=== PATIENT | male | born 1965 | race Two or more races ===

== ENCOUNTER → 2021-01-17 13:58 | Outpatient (CLI) | payer OTHER, SELFPAY ==
[2021-01-17 14:16] LABS: Basophils # 0.1 K/mm3 (0-0.2); Basophils % 0.6 % (0.1-2.0); Eosinophils # 0.8 K/mm3 (0.0-0.4); Hematocrit 50.5 % (42.0-52.0); Hemoglobin 15.8 g/dL (14.1-18.0); Lymphocytes % 26.4 % (10-50); Mean Corpuscular HGB Conc 31.3 g/dL (31.8-35.4); Mean Corpuscular Hemoglobin 30.5 pg (27.0-31.2); Mean Corpuscular Volume 97.6 fl (80-94); Mean Platelet Volume 7.7 fl (7.4-10.4); Monocytes # 0.6 K/mm3 (0.1-1.0); Monocytes % 7.8 % (1.7-9.3); Neutrophils % 54.2 % (37.0-80.0); Platelet Count 287 K/mm3 (142-424); Red Blood Count 5.18 M/mm3 (4.60-6.20); Red Cell Distribution Width 13.5 % (11.5-17.5); White Blood Count 7.4 K/mm3 (4.8-10.8)
[2021-01-17 14:32] LABS: 25-OH Vitamin D, Total 26.2 ng/mL (30-100)
[2021-01-17 14:44] LABS: Alanine Aminotransferase 41 U/L (12-78); Albumin Level 4.5 g/dl (3.5-5.0); Anion Gap 14.2 mEq/L (5-15); Aspartate Amino Transferase 35 U/L (17-59); Bilirubin,Total 0.3 mg/dl (0.2-1.3); Blood Urea Nitrogen 11 mg/dl (9-20); Calcium 8.7 mg/dl (8.4-10.2); Carbon Dioxide 21 mmol/L (22.0-30.0); Chloride 108 mmol/L (98-107); Estimated Glomerular Filt Rate 118 ml/min (>60); GFR (African American) 143 ML/MIN (>60); Globulin 3.2 g/dL (1.3-3.2); Glucose 85 mg/dl (74-100); Potassium 4.2 mmoL/L (3.5-5.1); Sodium 139 mmol/L (136-145); Total Protein,Serum 7.7 g/dl (6.3-8.2)
[2021-01-17 14:45] LABS: Albumin/Globulin Ratio 1.4 (1.1-1.8); Alkaline Phosphatase 82 U/L (38-126); Chol/HDL Ratio 4.1 (1-3.5); Cholesterol 160 mg/dl (140-200); HDL Cholesterol 39 mg/dl (40-60); Triglycerides 140 mg/dl (30-150); VLDL Cholesterol 28 mg/dL (0-40)
[2021-01-17 14:56] LABS: Direct LDL Cholesterol 90.76 mg/dL (100-129)
[2021-01-17 15:02] LABS: T4 (Thyroxine) 7.8 ug/dl (5.53-11.0)
[2021-01-17 15:15] LABS: Prostate Specific Ag Screen 1.5 ng/ml (0.0-4.0); Thyroid Stimulating Hormone 4.07 uIU/mL (0.465-4.68)
== END ==
PROVIDERS: Visit Provider Nurse Practitioner Family
DX: Z00.00 Encounter for general adult medical examination without abnormal findings (principal); I10 Essential (primary) hypertension; M10.9 Gout, unspecified; E55.9 Vitamin D deficiency, unspecified; Z12.5 Encounter for screening for malignant neoplasm of prostate
CPT/HCPCS: 80053; 80061; 82306; 83036; 84436; 84443; 84550; 85025; G0103

== ENCOUNTER 2021-05-28 23:14 | Emergency (ER) | payer OTHER, SELFPAY ==
[2021-05-28 23:16] VITALS: BP 152/98; PULSE 110; RESP 21; TEMP 37.8; O2SAT 98; BMI 34.3
[2021-05-28 23:41] VITALS: BMI 31.8
--- NOTE | 2021-05-28 23:42 | XR_ITS ---
PROCEDURE INFORMATION: Exam: XR Chest Exam date and time: 05/28/2021 11:42 PM Age: 56 years old Clinical indication: Cough and shortness of breath; Additional info: Cough, SOA TECHNIQUE: Imaging protocol: XR of the chest. Views: 2 views. COMPARISON: No relevant prior studies available. FINDINGS: Lungs: Linear bibasilar atelectasis. Otherwise, no airspace consolidation. Pleural spaces: No pleural effusion. No pneumothorax. Heart/Mediastinum: Heart size upper limits of normal. Mildly tortuous thoracic aorta. Bones/joints: Unremarkable. IMPRESSION: Bibasilar atelectasis.
[2021-05-28 23:48] LABS: Coronavirus 19, PCR Not Detected (NotDetected); Influenza A, PCR Not Detected (NotDetected); Influenza B, PCR Not Detected (NotDetected)
[2021-05-28 23:49] LABS: Basophils # 0.1 K/mm3 (0-0.2); Basophils % 0.7 % (0.1-2.0); Eosinophils # 0.5 K/mm3 (0.0-0.4); Eosinophils % 4.7 % (0.1-12.0); Hemoglobin 15.8 g/dL (14.1-18.0); Lymphocytes # 1.4 K/mm3 (0.7-4.5); Lymphocytes % 12.5 % (10-50); Mean Corpuscular HGB Conc 32.2 g/dL (31.8-35.4); Mean Corpuscular Volume 99.2 fl (80-94); Mean Platelet Volume 8.2 fl (7.4-10.4); Monocytes # 0.5 K/mm3 (0.1-1.0); Monocytes % 4.5 % (1.7-9.3); Neutrophils # 8.9 K/mm3 (1.8-7.8); Neutrophils % 77.7 % (37.0-80.0); Platelet Count 288 K/mm3 (142-424); Red Blood Count 4.94 M/mm3 (4.60-6.20); Red Cell Distribution Width 13.9 % (11.5-17.5); White Blood Count 11.4 K/mm3 (4.8-10.8)
[2021-05-29 00:01] LABS: C-Reactive Protein 16.1 mg/L (0-4)
[2021-05-29 00:10] LABS: Lactic Acid 2.4 mmol/L (0.7-2.1)
[2021-05-29 00:15] LABS: Alanine Aminotransferase 44 U/L (12-78); Albumin Level 4.2 g/dl (3.5-5.0); Albumin/Globulin Ratio 1.3 (1.1-1.8); Alkaline Phosphatase 55 U/L (38-126); Anion Gap 13.8 mEq/L (5-15); Aspartate Amino Transferase 35 U/L (17-59); Bilirubin,Total 0.3 mg/dl (0.2-1.3); Blood Urea Nitrogen 11 mg/dl (9-20); Calcium 8.9 mg/dl (8.4-10.2); Carbon Dioxide 23 mmol/L (22.0-30.0); Chloride 108 mmol/L (98-107); Creatinine Clearance Estimated 122 mL/min (50-200); Estimated Glomerular Filt Rate 101 ml/min (>60); GFR (African American) 122 ML/MIN (>60); Globulin 3.3 g/dL (1.3-3.2); Glucose 206 mg/dl (74-100); Magnesium 1.8 mg/dl (1.6-2.3); Potassium 3.8 mmoL/L (3.5-5.1); Procalcitonin 0.068 ng/mL (0.0-2.0); Sodium 141 mmol/L (136-145); Total Protein,Serum 7.5 g/dl (6.3-8.2); Troponin I < 0.01 ng/ml (0.00-0.034)
[2021-05-29 00:20] VITALS: BP 152/98; PULSE 114; O2SAT 97
[2021-05-29 00:28] LABS: Erythrocyte Sedimentation Rate 7 mm/hr (0-20)
--- NOTE | 2021-05-29 00:41 | PC.NURSE ---
pt up to restroom
--- NOTE | 2021-05-29 00:46 | HMH.EDSOB ---
ED Disposition Clinical Impression: Elevated glucose level, HTN (hypertension) with goal to be determined URI (upper respiratory infection) Qualifiers: URI type: unspecified URI Qualified Code(s): J06.9 - Acute upper respiratory infection, unspecified Disposition: Home, Self-Care Condition on Discharge: Good Instructions: DI for Viral Upper Respiratory Infection -- Adult Additional Instructions: call pcp in am Referrals: Marcell Bonner APRN [Primary Care Provider] - - Critical Care Critical Care Time: No Attestation: On 05/28/21, the high probability of a clinically significant, sudden or life threatening deterioration of the following system(s) required my full and direct attention, intervention and personal management. The time I documented below is in addition to time spent performing reported procedures but includes the following listed in this critical care notation. Medical Decision Making - Medical Records Medical records reviewed: Yes: I reviewed the patient's medical records. - Andrzej Inquiry Pt receiving controlled substance: No Vital Signs: 05/28/21 23:16 05/29/21 00:20 Temperature 100.1 F H Temperature Source Oral Pulse Rate 114 H Pulse Rate [Right] 110 H Respiratory Rate 21 Blood Pressure 152/98 H Blood Pressure [Right Arm] 152/98 H Blood Pressure Mean [Right Arm] 116 02 Sat by Pulse Oximetry 98 97 Oxygen Delivery Method Room Air - Lab Data Lab results reviewed: Yes: I reviewed the patient's lab results. Lab Results 05/28/21 23:30: WBC 11.4 H, RBC 4.94, Hgb 15.8, Hct 49.0, MCV 99.2 H, MCH 32.0 H, MCHC 32.2, RDW 13.9, Plt Count 288, MPV 8.2, Neut % (Auto) 77.7, Lymph % (Auto) 12.5, [place] % (Auto) 4.5, Eos % (Auto) 4.7, Baso % (Auto) 0.7, Neut # (Auto) 8.9 H, Lymph # (Auto) 1.4, [place] # (Auto) 0.5, Eos # (Auto) 0.5 H, Baso # (Auto) 0.1, ESR 7 05/28/21 23:30: Sodium 141, Potassium 3.8, Chloride 108 H, Carbon Dioxide 23, Anion Gap 13.8, BUN 11, Creatinine 0.80, Estimated Creat Clear 122, Estimated GFR 101, Est GFR ( Amer) 122, Glucose 206 H, Calcium 8.9, Magnesium 1.8, Total Bilirubin 0.3, AST 35, ALT 44, Alkaline Phosphatase 55, Troponin I < 0.01, C-Reactive Protein 16.1 H, Total Protein 7.5, Albumin 4.2, Globulin 3.3 H, Albumin/Globulin Ratio 1.3, Procalcitonin 0.068 05/28/21 23:30: Lactate 2.4 H 05/28/21 23:30: SARS-CoV-2 (PCR) Not detected, Influenza A Untype (PCR) Not detected, Influenza Type B (PCR) Not detected Result diagrams: 05/28/21 23:30 05/28/21 23:30 Orders (Tests/Meds): ED MEDICATIONS Generic Name Dose Route Start Last Admin Trade Name Freq PRN Reason Stop Dose Admin Sodium Chloride 1,000 mls @ 999 mls/hr 05/28/21 23:45 05/29/21 00:00 Sod Chlor 0.9% 1000ml Bag IV 05/29/21 00:45 999 mls/hr .Q1H1M KAREN Administration Discontinued Medications Generic Name Dose Route Start Last Admin Trade Name Freq PRN Reason Stop Dose Admin Dexamethasone Sodium Phosphate 10 mg 05/28/21 23:45 05/29/21 00:33 Dexamethasone 4mg/Ml 5ml Mdv IV 05/28/21 23:46 10 mg ONCE ONE Administration Ketorolac Tromethamine 30 mg 05/28/21 23:45 05/29/21 00:33 Ketorolac 30mg/Ml Vial IV 05/28/21 23:46 Not Given ONCE ONE ORDERS Category Date Time Status Hemoglobin A1C Stat Lab 05/29/21 00:49 Ordered Troponin I Q3H Lab 05/29/21 02:45 Ordered Troponin I Q3H Lab 05/29/21 05:45 Ordered UA [Urinalysis and Microscopic] Stat Lab 05/28/21 23:47 Ordered - Radiology Data #1 Image(s): Chest Image Reviewed: Yes I have reviewed radiologist's interpretation Preliminary Findings: Normal/NAD Medical Decision Narrative: prob uri but has elevated glu and bp - will ask pt to call pcp for follow up Resp/SOB HPI - General Chief Complaint: Shortness of Breath/Dyspnea Stated Complaint: sore throat,cough,SOA,LIU,runny nose Time Seen by Provider: 05/28/21 23:45 Mode of Arrival: Family Vehicle Source of Information: Patient, Medical Record
[2021-05-29 01:09] VITALS: BP 158/96; PULSE 99; RESP 20; TEMP 37.3; O2SAT 97
== END 2021-05-29 01:11 | disposition home or self-care (01) ==
PROVIDERS: Emergency Provider Emergency Medicine; PCP Nurse Practitioner Family
DX: J06.9 Acute upper respiratory infection, unspecified (principal); I16.0 Hypertensive urgency; Z20.822 Contact with and (suspected) exposure to COVID-19
CPT/HCPCS: 71046; 80053; 83036; 83605; 83735; 84145; 84484; 85025; 85651; 86140; 96365; 96375; 99283; C9803; U0003; U0005

== ENCOUNTER → 2021-05-29 18:44 | Outpatient (CLI) | payer OTHER, SELFPAY ==
[2021-05-29 18:45] LABS: Adenovirus,PCR Not Detected (NotDetected); Bordetella Pertussis Not Detected (NotDetected); Chlamydophila Pneumoniae, PCR Not Detected (NotDetected); Coronavirus 19, PCR Not Detected (NotDetected); Coronavirus 229E Not Detected (NotDetected); Coronavirus NL63 Not Detected (NotDetected); Coronavirus OC43 Not Detected (NotDetected); Coronovirus HKU1,PCR Not Detected (NotDetected); Human Metapneumovirus Not Detected (NotDetected); Influenza A, PCR Not Detected (NotDetected); Influenza AH1, 2009 Not Detected (NotDetected); Influenza AH1, PCR Not Detected (NotDetected); Influenza AH3,PCR Not Detected (NotDetected); Influenza B, PCR Not Detected (NotDetected); Mycoplasma Pneumoniae, PCR Not Detected (NotDetected); Parainfluenza 1, PCR Not Detected (NotDetected); Parainfluenza 2, PCR Not Detected (NotDetected); Parainfluenza 3, PCR Not Detected (NotDetected); Parainfluenza 4, PCR Not Detected (NotDetected); Respiratory Syncytial Virus Not Detected (NotDetected)
[2021-05-29 23:54] LABS: Rhinovirus/Enterovirus Detected (NotDetected)
== END ==
PROVIDERS: Visit Provider Nurse Practitioner Family
DX: Z20.822 Contact with and (suspected) exposure to COVID-19 (principal); B34.1 Enterovirus infection, unspecified
CPT/HCPCS: 87581; 87632; 87798; C9803; U0003; U0005

== ENCOUNTER 2021-07-23 11:12 | Emergency (ER) | payer OTHER, SELFPAY ==
[2021-07-23 11:27] VITALS: BP 161/114; PULSE 91; RESP 18; TEMP 36.9; O2SAT 95; BMI 33.3
--- NOTE | 2021-07-23 11:38 | XR_ITS ---
PROCEDURE: XR CHEST 2V CLINICAL HISTORY: htn COMPARISON: CR XR CHEST 2V from 05/28/2021 FINDINGS: The cardiomediastinal silhouette and pulmonary vascularity are within normal limits. The lungs are clear without infiltrates, suspicious nodules, or pleural effusions. No acute bony abnormalities. IMPRESSION: No acute findings. Dictated by: Navid Chirinos MD 07/23/2021 12:56 Navid Chirinos MD in [place] 07/23/2021 12:56
[2021-07-23 11:45] LABS: Chloride 100 mmol/L (98-107); Potassium 4.2 mmoL/L (3.5-5.1); Sodium 141 mmol/L (136-145)
[2021-07-23 11:46] LABS: Basophils % 0.5 % (0.1-2.0); Eosinophils # 0.3 K/mm3 (0.0-0.4); Eosinophils % 3.6 % (0.1-12.0); Hematocrit 52.2 % (42.0-52.0); Hemoglobin 17.3 g/dL (14.1-18.0); Lymphocytes # 1.5 K/mm3 (0.7-4.5); Lymphocytes % 19.3 % (10-50); Mean Corpuscular HGB Conc 33.2 g/dL (31.8-35.4); Mean Corpuscular Hemoglobin 32.1 pg (27.0-31.2); Mean Corpuscular Volume 96.7 fl (80-94); Mean Platelet Volume 7.4 fl (7.4-10.4); Monocytes # 0.4 K/mm3 (0.1-1.0); Monocytes % 5.3 % (1.7-9.3); Neutrophils # 5.6 K/mm3 (1.8-7.8); Neutrophils % 71.3 % (37.0-80.0); Platelet Count 307 K/mm3 (142-424); Red Cell Distribution Width 12.8 % (11.5-17.5); White Blood Count 7.9 K/mm3 (4.8-10.8)
--- NOTE | 2021-07-23 11:46 | ECG_ITS ---
APPROVED REPORT Exam: Resting ECG HR:79 bpm ECG Measurements Heart Rate 79 AXES DC 164 P 74 QRSd 84 QRS 80 QT 380 T 51 QTc 435 Conclusion Normal sinus rhythm Normal ECG Electronically signed by : Tono Linares MD 07/23/2021 20:59:31
[2021-07-23 11:48] LABS: Anion Gap 14.2 mEq/L (5-15); Blood Urea Nitrogen 10 mg/dl (9-20); Calcium 9.4 mg/dl (8.4-10.2); Carbon Dioxide 31 mmol/L (22.0-30.0); Creatinine Clearance Estimated 135 mL/min (50-200); Estimated Glomerular Filt Rate 101 ml/min (>60); GFR (African American) 122 ML/MIN (>60); Glucose 123 mg/dl (74-100)
[2021-07-23 11:49] VITALS: BP 156/109; PULSE 90; RESP 18; O2SAT 96
--- NOTE | 2021-07-23 11:52 | HMH.EDGENADL ---
ED Disposition Clinical Impression: Vertigo, Essential hypertension Left otitis media Qualifiers: Otitis media type: suppurative Chronicity: acute Recurrence: non-recurrent Spontaneous tympanic membrane rupture: without spontaneous rupture Qualified Code(s): H66.002 - Acute suppurative otitis media without spontaneous rupture of ear drum, left ear Disposition: Home, Self-Care Condition on Discharge: Good Instructions: DI for Vertigo, DI for Middle Ear Infection-Adult Additional Instructions: Antivert as needed for dizziness. Amoxicillin as prescribed. Increase your lisinopril to 20 mg/day. Follow-up with your primary care provider tomorrow as scheduled. Return to the emergency department if worsening dizziness, repetitive vomiting, unable to walk, or any new symptoms such as loss of vision/double vision, weakness of arms or legs. Prescriptions: Amoxicillin [Amoxicillin 500mg Cap] 500 mg PO TID #30 cap Transmission Status: Pending to [facility] Meclizine HCl [Antivert 25mg tablet] 25 mg PO TIDP PRN #15 tab PRN Reason: Vertigo Transmission Status: Pending to [facility] Referrals: Marcell Bonner APRN [Primary Care Provider] - - Critical Care Critical Care Time: No Attestation: On 07/23/21, the high probability of a clinically significant, sudden or life threatening deterioration of the following system(s) required my full and direct attention, intervention and personal management. The time I documented below is in addition to time spent performing reported procedures but includes the following listed in this critical care notation. Medical Decision Making - Andrzej Inquiry Pt receiving controlled substance: No Vital Signs: 07/23/21 11:27 07/23/21 11:49 Temperature 98.5 F Temperature Source Oral Pulse Rate 90 Pulse Rate [Left Radial] 91 H Respiratory Rate 18 18 Blood Pressure 156/109 H Blood Pressure [Right Arm] 161/114 H Blood Pressure Mean [Right Arm] 129 Blood Pressure Source [Right Arm] Automatic Cuff Blood Pressure Position [Right Arm] Sitting 02 Sat by Pulse Oximetry 95 96 Oxygen Delivery Method Room Air Room Air - Lab Data Lab Results 07/23/21 11:32: WBC 7.9, RBC 5.40, Hgb 17.3, Hct 52.2 H, MCV 96.7 H, MCH 32.1 H, MCHC 33.2, RDW 12.8, Plt Count 307, MPV 7.4, Neut % (Auto) 71.3, Lymph % (Auto) 19.3, [place] % (Auto) 5.3, Eos % (Auto) 3.6, Baso % (Auto) 0.5, Neut # (Auto) 5.6, Lymph # (Auto) 1.5, [place] # (Auto) 0.4, Eos # (Auto) 0.3, Baso # (Auto) 0.0 07/23/21 11:32: Sodium 141, Potassium 4.2, Chloride 100, Carbon Dioxide 31 H, Anion Gap 14.2, BUN 10, Creatinine 0.80, Estimated Creat Clear 135, Estimated GFR 101, Est GFR ( Amer) 122, Glucose 123 H, Calcium 9.4, Troponin I < 0.01 Result diagrams: 07/23/21 11:32 07/23/21 11:32 Orders (Tests/Meds): ED MEDICATIONS Generic Name Dose Route Start Last Admin Trade Name Freq PRN Reason Stop Dose Admin Lisinopril 10 mg 07/23/21 13:30 07/23/21 13:33 Lisinopril 10mg Tablet PO 08/22/21 13:29 10 mg DAILY KAREN Administration Discontinued Medications Generic Name Dose Route Start Last Admin Trade Name Freq PRN Reason Stop Dose Admin Meclizine HCl 25 mg 07/23/21 12:49 07/23/21 13:10 Meclizine 25mg Tablet PO 07/23/21 12:50 25 mg ONCE ONE Administration ORDERS Category Date Time Status Troponin I Q3H Lab 07/23/21 14:45 Ordered Troponin I Q3H Lab 07/23/21 17:45 Ordered - Radiology Data #1 Image(s): Chest Image Reviewed: Yes I reviewed the patient's radiology image, Yes I have reviewed radiologist's interpretation PROCEDURE: XR CHEST 2V CLINICAL HISTORY: htn COMPARISON: CR XR CHEST 2V from 05/28/2021 FINDINGS: The cardiomediastinal silhouette and pulmonary vascularity are within normal limits. The lungs are clear without infiltrates, suspicious nodules, or pleural effusions. No acute bony abnormalities. IMPRESSION: No acute findings.
[2021-07-23 12:04] LABS: Troponin I < 0.01 ng/ml (0.00-0.034)
--- NOTE | 2021-07-23 12:41 | CT_ITS ---
PROCEDURE: CT HEAD/BRAIN WO CON CLINICAL INDICATION: dizziness COMPARISON: No exams were available for comparison TECHNIQUE: Axial images obtained. All CT scans at the facility use one or more dose reduction, viz: automated exposure control, ma/kV adjustment per patient size (including targeted exams where dose is matched to indication, i.e. head), or iterative reconstruction technique. FINDINGS: No midline shift, mass effect, intracranial hemorrhage, hydrocephalus, or extra-axial fluid collection is evident. Cavum septum pellucidum is present as a normal variant. The calvarium has an unremarkable appearance. No mastoid effusion. No sinus air-fluid level. IMPRESSION: No acute intracranial finding Dictated by: Navid Chirinos MD 07/23/2021 13:09 Navid Chirinos MD in [place] 07/23/2021 13:09
[2021-07-23 13:50] VITALS: BP 142/97; PULSE 77; RESP 20; TEMP 36.9; O2SAT 99
== END 2021-07-23 13:50 | disposition home or self-care (01) ==
PROVIDERS: Emergency Provider Emergency Medicine; PCP Nurse Practitioner Family
DX: R42 Dizziness and giddiness (principal); H66.002 Acute suppurative otitis media without spontaneous rupture of ear drum, left ear; J45.909 Unspecified asthma, uncomplicated; I10 Essential (primary) hypertension
CPT/HCPCS: 70450; 71046; 80048; 83036; 84484; 85025; 93005; 99283

== ENCOUNTER → 2022-03-16 13:41 | Outpatient (CLI) | payer OTHER, SELFPAY | PROVIDERS: PCP Nurse Practitioner Family; Visit Provider Nurse Practitioner Family | DX: Z20.822 Contact with and (suspected) exposure to COVID-19 (principal) | CPT/HCPCS: C9803; U0003; U0005 ==

== ENCOUNTER → 2023-01-16 11:22 | Outpatient (CLI) | payer OTHER, SELFPAY ==
--- NOTE | 2023-01-16 11:27 | US_ITS ---
FINAL REPORT CLINICAL HISTORY: HTN,CLAUDICATION,REST PAIN,UNABLE TO PALPATE PULSE LT FOOT FINDINGS: COMPLETE ANKLE/BRACHIAL INDICES BILATERAL Complete ankle brachial indices were obtained. The right FROILAN is 1.3. The left FROILAN is 1.3. IMPRESSION: ABIs are within normal limits bilaterally. Reviewed, Interpreted and Dictated by Zackary Whitaker III, MD Transcribed by Leeann Carbone Authenticated and [facility]
== END ==
PROVIDERS: PCP Nurse Practitioner Family; Visit Provider Nurse Practitioner Family
DX: R09.89 Other specified symptoms and signs involving the circulatory and respiratory systems (principal)
CPT/HCPCS: 93923

== ENCOUNTER 2024-12-29 08:00 | Outpatient (RCR) | payer OTHER, SELFPAY | END 2024-12-29 23:59 | disposition home or self-care (01) | LOC: PT 08:00 | PROVIDERS: Visit Provider Nurse Practitioner Family | DX: M19.90 Unspecified osteoarthritis, unspecified site (principal) | CPT/HCPCS: 97110; 97163; 97530 ==

== ENCOUNTER 2025-01-18 08:00 | Outpatient (RCR) | payer OTHER, SELFPAY | END 2025-01-18 23:59 | disposition home or self-care (01) | LOC: PT 08:00 | PROVIDERS: Visit Provider Nurse Practitioner Family | DX: M19.90 Unspecified osteoarthritis, unspecified site (principal) | CPT/HCPCS: 97110; 97164; 97530 ==

== ENCOUNTER 2025-02-02 15:50 | Emergency (ER) | payer OTHER, SELFPAY ==
[2025-02-02 16:02] VITALS: BP 151/112; PULSE 89; RESP 17; TEMP 37; O2SAT 98; BMI 29.2
--- OUTSIDE RECORDS SUMMARY | 2025-02-02 16:02 | XMS_ITS | Data Portability ---
Author Organization [facility] Address [address] [place] [address] Care Team Providers Care Bench Mover Name Role Phone NICOLE GARCIA Primary Care Provider Unavailabl e Assessment No assessment recorded. Plan of Treatment Reminders Order Date Submit Date Provider Last Modified By Organization Details Last Modified Time Details Appointments SAME Day 2024 02:40P Walt Garcia APRN Not available Not available Not available Lab uric acid, serum or plasma 2023 024 [facility], [address], [place] [address], [place], [address], 03/19/2024 09:12:03 rf (rheumato id factor), serum 2023 024 KE[facility], [address], [place], [place], [address], 03/19/2024 09:12:02 CMP, serum or plasma 2023 024 KE[facility], [address], [place], [place], [address], 03/19/2024 09:12:00 CBC w/ auto diff 2023 024 KE[facility], [address], [place], [place], [address], 03/19/2024 09:11:59 lipid panel, serum 2023 024 [facility], [address], [place] [address], [place], [address], 03/19/2024 09:12:00 HbA1c (hemoglob in A1c), blood 2023 024 KE[facility], [address], [place] [address], [place], [address], 03/19/2024 09:12:01 vitamin B12 + folate, serum or blood 2023 024 [facility], [address], [place], [place], [address], 03/19/2024 09:12:01 vitamin D, 25-hydrox y, total, serum 2023 024 KE[facility], [address], [place] [address], [place], [address], 03/19/2024 09:12:02 TSH + free T4, serum 2023 024 KELL [facility], [address], [place] [address], [place], [address], 03/19/2024 09:11:59 Referral None recorded. Procedures None recorded. Surgeries None recorded. Imaging None recorded. Medication Orders dexametha sone sodium phosphate 4 mg/mL injection solution 2024 025 [facility], [address] [place] [address], [place], [address], 02/02/2025 15:02:19 meloxicam 7.5 mg tablet 2023 025 [facility], [address] [place] [address] 2, [place], [address], 02/02/2025 14:28:14 dexametha sone sodium phosphate 4 mg/mL injection solution 2023 024 ilan Not available 12/05/2024 09:29:24 ketorolac 30 mg/mL (1 mL) injection solution 2023 024 cbuckler Not available 12/05/2024 09:29:50 lisinopri l 10 mg tablet 2023 024 [facility], [address] [place] [address], [facility] 2, [place], [address], 03/18/2024 11:07:52 omeprazol e 40 mg capsule,d elayed release 2023 025 [facility], [address] [place] [address], [facility] 2, [place], [address], 02/02/2025 14:28:12 ibuprofen 800 mg tablet 2023 025 [facility], [address] [place] [address] 2, [place], [address], 02/02/2025 14:28:10 dexametha sone sodium phosphate 4 mg/mL injection solution 2023 024 cbuckler Not available 12/05/2024 09:29:24 dexametha sone sodium phosphate 4 mg/mL injection solution 2022 023 [facility], [address] [place] [address] 2, [place], [address], 12/05/2024 09:29:24 prednison e 20 mg tablet 2022 023 [facility], [address] [place] [address] 2, [place], [address], 03/18/2024 09:52:06 allopurin ol 100 mg tablet 2022 023 [facility], [address] [place] [address] 2, [place], [address], 06/05/2023 12:13:36 Trelegy Ellipta 100 mcg-62.5 mcg-25 mcg powder for inhalatio n 2022 023 [facility], [address] [place] [address], [facility] 2, [place], [address], 06/05/2023 12:13:38 lisinopri l 10 mg tablet 2022 023 [facility], [address] [place] [address], [address], [place], [address], 06/05/2023 12:13:34 Patient TargetsNo targets recorded. Patient Instructions Encounter Date Encounter Id Patient Instructions Last Modified By Organization Details Last Modified Time 12/05/2024 [id number] physical therapy * - pt,ot for joint pain.stiffness KELL Not available 12/19/2024 16:13:10 learning about healthy [place] Not available 12/05/2024 14:05:34 body mass index: care instructions [facility] Not available 12/05/2024 14:05:34 Reason for Referral None Reported. Results Created Date Observation Date Name Description Value Unit Range Abnormal Flag Note LastModifiedBy Organization Detail LastModifiedTime 03/18/2003/19/2024 TSH+F REE T4 TSH 2.150 uIU/m L 0.450- 4.500 normal Not Available [facility] ([facility]) [address] [place], [address], 03/19/2024 09:11:59 03/18/2003/19/2024 TSH+F REE T4 T4,free(dire ct) 1.38 NG/dL 0.82-1 .77 normal Not Available [facility] ([facility]) [address] [place], [address], 03/19/2024 09:11:59 03/18/20 24 03/19/2024 CBC WITH DIFFE RENTI AL/PL ATELE T WBC 9.0 x10e3 /uL 3.4-10 .8 normal Not Available [facility] ([facility]) [address] [place], [address], 03/19/2024 09:11:59 03/18/20 24 03/19/2024 CBC WITH DIFFE RENTI AL/PL ATELE T RBC 5.26 x10e6 /uL 4.14-5 .80 normal Not Available [facility] ([facility]) [address] [place], [address], 03/19/2024 09:11:59 03/18/20 24 03/19/2024 CBC WITH DIFFE RENTI AL/PL ATELE T hemoglobin 16.1 g/dL 13.0-1 7.7 normal Not Available [facility] ([facility]) [address] [place], [address], 03/19/2024 09:11:59 03/18/20 24 03/19/2024 CBC WITH DIFFE RENTI AL/PL ATELE T hematocrit 50.1 % 37.5-5 1.0 normal Not Available [facility] ([facility]) [address] [place], [address], 03/19/2024 09:11:59 03/18/20 24 03/19/2024 CBC WITH DIFFE RENTI AL/PL ATELE T MCV 95 fL 79-97 normal Not Available [facility] ([facility]) [address] [place], [address], 03/19/2024 09:11:59 03/18/20 24 03/19/2024 CBC WITH DIFFE RENTI AL/PL ATELE T MCH 30.6 pg 26.6-3 3.0 normal Not Available [facility] ([facility]) [address] [place], [address], 03/19/2024 09:11:59 03/18/20 24 03/19/2024 CBC WITH DIFFE RENTI AL/PL ATELE T MCHC 32.1 g/dL 31.5-3 5.7 normal Not Available [facility] ([facility]) [address] [place], [address], 03/19/2024 09:11:59 03/18/20 24 03/19/2024 CBC WITH DIFFE RENTI AL/PL ATELE T RDW 13.6 % 11.6-1 5.4 Not Available [facility] ([facility]) [address] [facility], [place], [address], 03/19/2024 09:11:59 03/18/20 24 03/19/2024 CBC WITH DIFFE RENTI AL/PL ATELE T platelets 309 x10e3 /uL 150-45 0 normal Not Available [facility] ([facility]) [address] [facility], [place], [address], 03/19/2024 09:11:59 03/18/20 24 03/19/2024 CBC WITH DIFFE RENTI AL/PL ATELE T neutrophils 73 % not estab. normal Not Available [facility] ([facility]) [address] [facility], [place], [address], 03/19/2024 09:11:59 03/18/20 24 03/19/2024 CBC WITH DIFFE RENTI AL/PL ATELE T lymphs 18 % not estab. normal Not Available [facility] ([facility]) [address] [facility], [place], [address], 03/19/2024 09:11:59 03/18/20 24 03/19/2024 CBC WITH DIFFE RENTI AL/PL ATELE T monocytes 8 % not estab. normal Not Available [facility] ([facility]) [address] [facility], [place], [address], 03/19/2024 09:11:59 03/18/20 24 03/19/2024 CBC WITH DIFFE RENTI AL/PL ATELE T eos 1 % not estab. normal Not Available [facility] ([facility]) [address] [facility], [place], [address], 03/19/2024 09:11:59 03/18/20 24 03/19/2024 CBC WITH DIFFE RENTI AL/PL ATELE T basos 0 % not estab. normal Not Available [facility] ([facility]) [address] [facility], [place], [address], 03/19/2024 09:11:59 03/18/20 24 03/19/2024 CBC WITH DIFFE RENTI AL/PL ATELE T immature cells OVERLOCK SLEEVE SETTER Not Available [facility] ([facility]) [address] [place], [address], 03/19/2024 09:11:59 03/18/20 24 03/19/2024 CBC WITH DIFFE RENTI AL/PL ATELE T neutrophils (absolute) 6.5 x10e3 /uL 1.4-7. 0 normal Not Available [facility] ([facility]) [address] [place], [address], 03/19/2024 09:11:59 03/18/20 24 03/19/2024 CBC WITH DIFFE RENTI AL/PL ATELE T lymphs (absolute) 1.6 x10e3 /uL 0.7-3. 1 normal Not Available [facility] ([facility]) [address] [place], [address], 03/19/2024 09:11:59 03/18/20 24 03/19/2024 CBC WITH DIFFE RENTI AL/PL ATELE T monocytes(ab solute) 0.7 x10e3 /uL 0.1-0. 9 normal Not Available [facility] ([facility]) [address] [place], [address], 03/19/2024 09:11:59 03/18/20 24 03/19/2024 CBC WITH DIFFE RENTI AL/PL ATELE T eos (absolute) 0.1 x10e3 /uL 0.0-0. 4 normal Not Available [facility] ([facility]) [address] [place], [address], 03/19/2024 09:11:59 03/18/20 24 03/19/2024 CBC WITH DIFFE RENTI AL/PL ATELE T baso (absolute) 0.0 x10e3 /uL 0.0-0. 2 normal Not Available [facility] ([facility]) [address] [facility], [place], [address], 03/19/2024 09:11:59 03/18/20 24 03/19/2024 CBC WITH DIFFE RENTI AL/PL ATELE T immature granulocytes 0 % not estab. Not Available [facility] ([facility]) [address] [facility], [place], [address], 03/19/2024 09:11:59 03/18/20 24 03/19/2024 CBC WITH DIFFE RENTI AL/PL ATELE T immature grans (abs) 0.0 x10e3 /uL 0.0-0. 1 Not Available [facility] ([facility]) [address] [facility], [place], [address], 03/19/2024 09:11:59 03/18/20 24 03/19/2024 CBC WITH DIFFE RENTI AL/PL ATELE T NRBC OVERLOCK SLEEVE SETTER Not Available [facility] ([facility]) [address] [facility], [place], [address], 03/19/2024 09:11:59 03/18/20 24 03/19/2024 CBC WITH DIFFE RENTI AL/PL ATELE T hematology comments: OVERLOCK SLEEVE SETTER Not Available [facility] ([facility]) [address] [facility], [place], [address], 03/19/2024 09:11:59 03/18/20 24 03/19/2024 COMP. METAB OLIC PANEL (14) glucose 88 mg/dL 70-99 normal Not Available [facility] ([facility]) [address] [place], [address], 03/19/2024 09:12:00 03/18/20 24 03/19/2024 COMP. METAB OLIC PANEL (14) BUN 12 mg/dL 6-24 normal Not Available [facility] ([facility]) [address] [place], [address], 03/19/2024 09:12:00 03/18/20 24 03/19/2024 COMP. METAB OLIC PANEL (14) creatinine 0.95 mg/dL 0.76-1 .27 normal Not Available [facility] ([facility]) [address] [place], [address], 03/19/2024 09:12:00 03/18/20 24 03/19/2024 COMP. METAB OLIC PANEL (14) eGFR 94 mL/mi n/1.7 3 >59 normal Not Available [facility] ([facility]) [address] [place], [address], 03/19/2024 09:12:00 03/18/20 24 03/19/2024 COMP. METAB OLIC PANEL (14) BUN/creatini ne ratio 13 9-20 normal Not Available [facility] ([facility]) [address] [facility], [place], [address], 03/19/2024 09:12:00 03/18/20 24 03/19/2024 COMP. METAB OLIC PANEL (14) sodium 140 mmol/ L 134-14 4 normal Not Available [facility] ([facility]) [address] [place], [address], 03/19/2024 09:12:00 03/18/20 24 03/19/2024 COMP. METAB OLIC PANEL (14) potassium 4.1 mmol/ L 3.5-5. 2 normal Not Available [facility] ([facility]) [address] [place], [address], 03/19/2024 09:12:00 03/18/20 24 03/19/2024 COMP. METAB OLIC PANEL (14) chloride 100 mmol/ L 96-106 normal Not Available [facility] ([facility]) [address] [place], [address], 03/19/2024 09:12:00 03/18/20 24 03/19/2024 COMP. METAB OLIC PANEL (14) carbon dioxide, total 24 mmol/ L 20-29 normal Not Available [facility] ([facility]) [address] [place], [address], 03/19/2024 09:12:00 03/18/20 24 03/19/2024 COMP. METAB OLIC PANEL (14) calcium 9.7 mg/dL 8.7-10 .2 normal Not Available [facility] ([facility]) [address] [place], [address], 03/19/2024 09:12:00 03/18/20 24 03/19/2024 COMP. METAB OLIC PANEL (14) protein, total 8.1 g/dL 6.0-8. 5 normal Not Available [facility] ([facility]) [address] [place], [address], 03/19/2024 09:12:00 03/18/20 24 03/19/2024 COMP. METAB OLIC PANEL (14) albumin 4.6 g/dL 3.8-4. 9 normal Not Available [facility] ([facility]) [address] [place], [address], 03/19/2024 09:12:00 03/18/20 24 03/19/2024 COMP. METAB OLIC PANEL (14) globulin, total 3.5 g/dL 1.5-4. 5 Not Available [facility] ([facility]) [address] [place], [address], 03/19/2024 09:12:00 03/18/20 24 03/19/2024 COMP. METAB OLIC PANEL (14) bilirubin, total 0.3 mg/dL 0.0-1. 2 normal Not Available [facility] ([facility]) [address] [place], [address], 03/19/2024 09:12:00 03/18/20 24 03/19/2024 COMP. METAB OLIC PANEL (14) alkaline phosphatase 84 IU/L 44-121 normal Not Available [facility] ([facility]) [address] [place], [address], 03/19/2024 09:12:00 03/18/20 24 03/19/2024 COMP. METAB OLIC PANEL (14) AST (SGOT) 14 IU/L 0-40 normal Not Available [facility] ([facility]) [address] [place], [address], 03/19/2024 09:12:00 03/18/20 24 03/19/2024 COMP. METAB OLIC PANEL (14) ALT (SGPT) 14 IU/L 0-44 normal Not Available [facility] ([facility]) [address] [place], [address], 03/19/2024 09:12:00 03/18/20 24 03/19/2024 LIPID PANEL cholesterol, total 194 mg/dL 100-19 9 normal Not Available [facility] ([facility]) [address] [place], [address], 03/19/2024 09:12:00 03/18/20 24 03/19/2024 LIPID PANEL triglyceride s 104 mg/dL 0-149 normal Not Available [facility] ([facility]) [address] [place], [address], 03/19/2024 09:12:00 03/18/20 24 03/19/2024 LIPID PANEL HDL cholesterol 47 mg/dL >39 normal Not Available [facility] ([facility]) [address] [place], [address], 03/19/2024 09:12:00 03/18/20 24 03/19/2024 LIPID PANEL VLDL cholesterol day 19 mg/dL 5-40 Not Available [facility] ([facility]) [address] [place], [address], 03/19/2024 09:12:00 03/18/20 24 03/19/2024 LIPID PANEL LDL chol calc ([facility]) 128 mg/dL 0-99 above high normal Not Available [facility] ([facility]) [address] [place], [address], 03/19/2024 09:12:00 03/18/20 24 03/19/2024 LIPID PANEL LDL calc comment: OVERLOCK SLEEVE SETTER Not Available [facility] ([facility]) [address] [facility], [place], [address], 03/19/2024 09:12:00 03/18/20 24 03/19/2024 VITAM IN B12 AND FOLAT E vitamin B12 509 pg/mL 232-12 45 normal Not Available [facility] ([facility]) [address] [facility], [place], [address], 03/19/2024 09:12:01 03/18/20 24 03/19/2024 VITAM IN B12 AND FOLAT E folate (folic acid), serum 9.9 NG/mL >3.0 normal A serum folat e jos ntrat ion of less than 3.1 ng/mL is consi dered to repre sent clini day defic iency . Not Available [facility] ([facility]) [address] [facility], [place], [address], 03/19/2024 09:12:01 03/18/20 24 03/19/2024 HEMOG LOBIN A1C hemoglobin A1C 6.0 % 4.8-5. 6 above high normal Predi abete s: 5.7 - 6.4 Diabe vivian: >6.4 Glyce erika contr ol for adult s with diabe vivian: <7.0 Not Available [facility] ([facility]) [address] [facility], [place], [address], 03/19/2024 09:12:01 03/18/20 24 03/19/2024 RHEUM ATOID FACTO R (RF) rheumatoid factor (rf) <10.0 IU/mL <14.0 Not Available [facility] ([facility]) [address] [facility], [place], [address], 03/19/2024 09:12:02 03/18/20 24 03/19/2024 VITAM IN D, 25-HY DROXY vitamin D, 25-hydroxy 79.2 NG/mL 30.0-1 00.0 Vitam in D defic iency has been defin ed by the Insti tute of Medic ine and an Endoc rine Socie ty pract ice guide line as a level of serum 25-OH vitam in D less than 20 ng/mL (1,2) . The Endoc rine Socie ty went on to furth er defin e vitam in D insuf ficie ncy as a level betwe en 21 and 29 ng/mL (2). 1. IOM (Inst itute of Medic ine). 2010. Dieta ry refer ence don es for calci um and D. Ade blackburn [place]: [facility] . 2. Eddie martinez MF, Arlet franco [place], Armand off-F errar i LIU, et al. Evalu ation , treat ment, and preve ntion of vitam in D defic iency : an Endoc rine Socie ty clini day pract ice guide line. JCEM. 2010; 96(7) :1911 -30. Not Available [facility] ([facility]) [address] [facility], [place], [address], 03/19/2024 09:12:02 03/18/20 24 03/19/2024 URIC ACID uric acid 8.5 mg/dL 3.8-8. 4 above high normal Thera pesnowi darshan montesinosge t for gout patie nts: <6.0 Not Available [facility] ([facility]) [address] [facility], [place], [address], 03/19/2024 09:12:03 03/18/20 24 03/19/2024 PLEDIANA E NOTE please note Commen t The date and/o r time of colle ction was not indic ated on the requi sitio n as requi red by state and [place] law. The date of recei pt of the speci men was used as the colle ction date if not suppl ied. Not Available [facility] ([facility]) [address] [facility], [place], [address], 03/19/2024 09:12:03 11/30/19 24 07/25/2023 venou s study , lower extre mity, compl ete No observ ation record ed. BARCODE Not Available 2023 15:47:11 11/30/19 24 07/24/2023 elect rocar diogr am No observ ation record ed. BARCODE Not Available 2023 15:53:10 11/30/19 24 07/25/2023 arter ial study , lower extre mity, compl ete No observ ation record ed. BARCODE Not Available 2023 15:57:39 Result Notes None recorded. Problems Name Problem SNOMED Code Status Onset Date Resolution Date Notes Provider Name and Address Organization Details Recorded Time Asthma 149687566 Active Socorro Louis null, [place] - [facility] 2 15:55:48 Gout 48649545 Active Socorro Louis null, [place] - [facility] 2 15:56:08 Hypertensive disorder 35632153 Active Socorro Louis null, [place] - [facility] 2 15:56:25 Prediabetes 601956047 Active 2021 Eugonda Ha, [employer] [address], [place], [address] , [place] - [facility] 2 16:31:00 Osteoarthriti s 507406082 Active 2023 Joselyn Stears null, [place] - [facility] 4 10:06:35 Problem Notes None recorded. Procedures Surgical History Date Name Laterality Status Provider Name and Address Organization Details Recorded Time Unlisted procedure nose completed Socorro Louis [place] - [facility] 02/18/2022 15:50:01 Orthopedic Surgery completed Socorro Louis [place] - [facility] 02/18/2022 15:50:37 Oral surgery procedure completed Socorro Louis [place] - [facility] 02/18/2022 15:50:56 Unlisted px mecgatito's dvrtclm completed Socorro Louis [place] - [facility] 02/18/2022 15:51:05 Imaging Results None recorded. Procedure Notes None recorded. Medical Equipment None Reported. 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 active Not Available Not Available No t Available ibuprofen 800 mg tablet Take 1 tablet 3 times a day by oral route. 02/02 completed Not Available Not Available Not Available prednisone 20 mg tablet Take 1 tablet twice a day by oral route for 10 days. 03/18 completed Not Available Not Available Not Available allopurinol 100 mg tablet Take 1 tablet every day by oral route. 2022 active Not Available Not Available Not Avai lable omeprazole 40 mg capsule,del ayed release Take 1 capsule every day by oral route. 02/02 completed Not Available Not Available Not Available ketorolac 30 mg/mL (1 mL) injection solution Inject 15 mg every day by intramusc ular route. 12/05 completed Not Available Not Available Not Available meloxicam 7.5 mg tablet Take 1 tablet every day by oral route as needed for 30 days. 02/02 completed Not Available Not Available Not Available ferrous sulfate 325 mg (65 mg iron) tablet Take 1 tablet every day by oral route. 12/05 completed Not Available Not Available Not Available lisinopril 10 mg tablet Take 10 mg every day by oral route. active Not Available Not Available No t Available omeprazole 20 mg capsule,del ayed release Take 1 capsule every day by oral route. 11/22 completed Not Available Not Available Not Available allopurinol 300 mg tablet 02/18 completed Not Available Not Available Not Available lisinopril 5 mg tablet 02/18 completed Not Available Not Available Not Available dexamethaso ne sodium phosphate 4 mg/mL injection solution Inject 4 mg by intramusc ular route. 12/05 completed Not Available Not Available Not Available albuterol sulfate HFA 90 mcg/actuati on aerosol inhaler Inhale 1 puff every 4 hours by inhalatio n route as needed. active Not Available Not Available No t Available colchicine 0.6 mg tablet Take 1 tablet by oral route. 2022 active Not Available Not Available Not Avai lable Norgesic Forte 1 tablet daily 02/02 completed Not Available Not Available Not Available collagen 400mg daily active Not Available Not Available No t Available niacin (inositol niacinate) 500 mg capsule Take 1 capsule every day by oral route. active Not Available Not Available No t Available Trelegy Ellipta 100 mcg-62.5 mcg-25 mcg powder for inhalation Inhale 1 puff every day by inhalatio n route. active Not Available Not Available No t Available Voltaren Arthritis Pain 1 % topical gel APPLY 2 GRAMS TO THE AFFECTED AREA(S) BY TOPICAL ROUTE 4 TIMES PER DAY 12/05 completed lot [id number] exp 05/27 Not Available Not Available Not Available Vitals Date Recorded Body height Body mass index (BMI) Body weight Heart rate Oxygen saturation Oxygen saturation in Arterial blood by Pulse oximetry Respiratory rate Systolic And Diastolic Provider Name and Address Organization Details Last Updated DateTime 4 165.1 cm 28.7 kg/m2 76949.2 9 g 89 /min 98 % 98 % 18 /min 146/90 mm[Hg] Socorro Louis [place] - [facility] 4 10:14:13 Date Recorded Body height Body mass index (BMI) Body weight Heart rate Oxygen saturation Oxygen saturation in Arterial blood by Pulse oximetry Respiratory rate Systolic And Diastolic Provider Name and Address Organization Details Last Updated DateTime 5 165.1 cm 30.3 kg/m2 59103.8 1 g 101 /min 98 % 98 % 18 /min 148/88 mm[Hg] Socorro Louis [place] - [facility] 5 09:28:44 Date Recorded Body height Body mass index (BMI) Body weight Oxygen saturation Oxygen saturation in Arterial blood by Pulse oximetry Respiratory rate Heart rate Systolic And Diastolic Provider Name and Address Organization Details Last Updated DateTime 5 165.1 cm 29.6 kg/m2 34496.4 4 g 98 % 98 % 18 /min 89 /min 158/88 mm[Hg] Socorro FIELD - [facility] 5 14:00:37 Date Recorded Body height Respiratory rate Body mass index (BMI) Body weight Body temperature Heart rate Oxygen saturation Oxygen saturation in Arterial blood by Pulse oximetry Systolic And Diastolic Provider Name and Address Organization Details Last Updated DateTime 4 165.1 cm 18 /min 29.3 kg/m2 81106.2 6 g 97.6 [degF] 94 /min 97 % 97 % 156/88 mm[Hg] Joselyn Schaefer [place] - [facility] 4 10:03:11 Date Recorded Body height Provider Name an d Address Organization Details Last Updated DateTime 06/05/2023 165.1 cm Socorroopal Louis [place] - [facility] 1 08/05/2022 10:37:30 Date Recorded Body mass index (BMI) Body weight Respiratory rate Oxygen saturation Oxygen saturation in Arterial blood by Pulse oximetry Heart rate Body temperature Systolic And Diastolic Provider Name and Address Organization Details Last Updated DateTime 3 28.6 kg/m2 29388.8 9 g 18 /min 98 % 98 % 78 /min 98.2 [degF] 134/84 mm[Hg] Joselyn Newbys [place] - [facility] 3 11:02:57 Social History Question Answer Notes LastModified by Organizat ion Details LastModified Time Tobacco Smoking Status Never Smoker Socorro Barriosler zhang, [place] - [facility] 02/18/2022 15:45:39 Do You Have An Advance Directive? No Information n ot available 02/18/2022 Are You Blind Or Do You Have Difficulty Seeing? No Information n ot available 02/18/2022 What Is Your Level Of Caffeine Consumption? Moderate Information not available 02/18/2022 In The 14 Days Before Symptom Onset, Have You Had Close Contact With A Laboratory-confirm ed COVID-19 While That Case Was Ill? No Information n ot available 02/18/2022 In The 14 Days Before Symptom Onset, Have You Had Close Contact With A Person Who Is Under Investigation For COVID-19 While That Person Was Ill? No Information not available 02/18/2022 Have You Been To An Area Known To Be High Risk For COVID-19? No Information not available 02/18/2022 Are You Deaf Or Do You Have Serious Difficulty Hearing? No Information not available 02/18/2022 What Type Of Diet Are You Following? REGULAR Information n ot available 02/18/2022 Have You Processed Blood Or Body Fluids From An Ebola Virus Disease Patient Without Appropriate PPE? No Information not available 02/18/2022 Do You Reside In Or Have You Traveled To An Area Where Ebola Virus Transmission Is Active? No Information not available 02/18/2022 What Is The Highest Grade Or Level Of School You Have Completed Or The Highest Degree You Have Received? [id number] Information not available 02/18/2022 Have There Been Any Changes To Your Family Or Social Situation? No Information no t available 02/18/2022 What Is The Fluoride Status Of Your Home? Fluoridated Information not available 02/18/2022 Have You Recently Or Are You Planning To Travel To An Area With Zika Virus? No Information not available 02/18/2022 Do You Have A Medical Power Of Well Driller? No Information not available 02/18/2022 What Was The Date Of Your Most Recent Tobacco Screening? 12/05/2024 Information not available 12/05/2024 How Many Children Do You Have? 0 bstears Information not available 06/05/2023 What Is Your Relationship Status? Information not available 02/18/2022 Are You Sexually Active? Yes Information not available 02/18/2022 Do You Have Smoke And Carbon Monoxide Detectors In Your Home? Yes Information not available 02/18/2022 Are You Passively Exposed To Smoke? No Information no t available 02/18/2022 Has Tobacco Cessation Counseling Been Provided? No Information not available 02/18/2022 Do You Have Difficulty Walking Or Climbing Stairs? No Information not available 02/18/2022 Sex: Male Functional Status Question Answer Note LastModified by Organizat ion Details LastModified Time Do you use any illicit or recreational drugs? No Information not available 02/18/2022 Do you or have you ever used any other forms of tobacco or nicotine? No Information not available 02/18/2022 What is your level of alcohol consumption? None Information not available 02/18/2022 Are you currently employed? Yes Information not available 02/18/2022 Do you have transportation difficulties? No Information not available 02/18/2022 Are you able to walk? YESWOREST Information not available 02/18/2022 Do you have difficulty doing errands alone? No Information not available 02/18/2022 Are you able to care for yourself? 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 No Information not available 02/18/2022 What is your exercise level? Occasional Information not available 02/18/2022 Mental Status Question Answer Note LastModified by Organizat ion Details LastModified Time Do you feel stressed (tense, restless, nervous, or anxious, or unable to sleep at night)? [id number] Information not available 02/18/2022 Do you have difficulty concentrating, remembering or making decisions? No Information no t available 02/18/2022 Family History Relationship Description Onset Age of this Age Resolved Age Notes LastModified by Organization Details LastModified Time Father Gout cbuckler Not available 0 02/18/2022 15:44:39 Father Alzheimer's disease cbuckler Not available 2021 15:44:58 Mother Cerebrovascu lar accident cbuckler Not available 15:45:11 Medical History Condition Response Gout Y Colonoscopy N Asthma Y Immunizations Vaccine Type Date Status Note Provider Nam e and Address Organization Details Recorded Time COVID-19 vaccine, vector-nr, rS-Ad26, PF, 0.5 mL 12/06/2020 completed Socorro holcombROMAN - [facility] 01/12/2023 09:51:31 Past Encounters Encounter ID Performer Location Encounter Start Date Encounter Closed Date Diagnosis/Indication Diagnosis SNOMED-CT Code Diagnosis ICD10 Code Diagnosis Note [id number] Nicole Garcia [address] [address] 02/18/2022 14:54:56 02/18/2022 16:44:58 Asthma 334964656 J45.909 Gout 82447264 M10.9 Hypertensive disorder 38 788246 I10 Prediabetes 702462955 R7 3.03 [id number] Nicole Dominguezelliestephanie [address] [address] 01/12/2023 09:39:24 01/12/2023 11:23:27 Gout 66846489 M10.9 Hypertensive disorder 38 805800 I10 Asthma 737632814 J45.90 9 Body mass index 30+ - obesity 693264845 Z68.33 Obesity 727994708 E66.9 Prediabetes 866378754 R7 3.03 Fatigue 07169933 R53.83 Numbness of hand 4872929 04 R20.0 Abnormal p eripheral pulse 87906071 R09.89 [id number] Nicole Garcia [address] [address] 02/20/2023 10:59:04 02/20/2023 12:05:37 Gout 22692857 M10.9 Prediabetes 733707677 R7 3.03 check bs and keep log bring to next appointmen t Hypertensive disorder 38 783851 I10 pt is going to monitor bp at home and return if any high numbers.pt states he wants to see how diet and exercise works on his bp. will restart meds if bp is high [id number] Nicole Garcia [address] [address] 2023 10:25:47 2023 11:38:24 Prediabetes 259963516 R73.03 Hypertensive disorder 38 908961 I10 Anemia 442795244 D64.9 Pain of mu ltiple joints 08516906 M25.50 [id number] Nicole Garcia [address] [address] 04/17/2023 10:42:18 04/17/2023 11:36:15 Gout 08977239 M10.9 monitor diet Pain of mu ltiple joints 77766650 M25.50 trial of voltaren cream Prediabetes 518923797 R7 3.03 continue diet and monitoring glucoseret run in 2 months for labs [id number] Nicole Garcia[address] [address] 06/05/2023 10:31:21 06/05/2023 12:01:17 Prediabetes 715363729 R73.03 continue diet and monitoring glucosesam ples of g7 given to pt Hypertensive disorder 38 622768 I10 Gout 09989049 M10.9 monitor diet Asthma 026472197 J45.90 9 [id number] Nicole Garcia[address] [address] 11/23/2023 09:55:56 11/23/2023 11:54:39 Asthma 528201888 J45.909 Gout 91031985 M10.9 monitor diet Hypertensive disorder 38 054736 I10 Prediabetes 550189105 R7 3.03 continue diet and monitoring glucoselab s in 3 months had labs at hospital Arthritis 3553128 M19.90 [id number] Nicole Garcia[address] [address] 03/18/2024 09:38:00 03/18/2024 11:41:25 Hypertensive disorder 40078326 I10 labsmed refill Osteoarthritis 017826884 M19.90 do not take any other nsids while on mobicdo not take norgesic if taking meloxicam Gastroesop hageal reflux disease without esophagitis 428424854 K21.9 Malaise and fatigue 2717 26813 R53.83 Prediabetes 203041873 R7 3.03 continue diet and monitoring glucoselab s in 3 months [id number] Nicole Garcia APRN [address] [address] 12/05/2024 09:06:11 12/05/2024 10:11:02 Osteoarthritis 216819145 M19.90 do not take any other nsids while on mobicdo not take norgesic if taking meloxicam Hypertensive disorder 38 220494 I10 labsmed refill Prediabetes 745608626 R7 3.03 continue diet and monitoring glucoselab s in 3 months Gout 34210813 M10.9 monitor diet Body mass index 30+ - obesity 960391996 E66.9 30.3 Obesity 914123555 E66.9 [id number] Nicole Garcia APRN [address] [address] 02/02/2025 13:09:24 02/02/2025 15:09:04 Joint pain in right hand 8870302633 056964 M25.541 Acute abdominal pain 116 423951 R10.9 sent to ed for eval Health Concerns Section Related Observation LastModified by Organization Detai ls LastModified Time None Recorded Concern Status LastModified by Organization Details LastModified Time None Recorded Advance Directives Directive N: Payers Insurance Date Sequence Insurance Name Policy Number Policy Ruiz Covered Member ID Ruiz Member ID Guarantor Name 02/02/2025 1 [employer] ([place] Dilshad Moya [id number] Dilshad Moya 02/18/2022 1 [employer] PRIOR TO 2022 (MEDICAID REPLACEMENT - HMO) Dilshad Moya [id number] Dilshad Moya Notes Date Note Type Note Provider Name and Address Organization Details Recorded Time 06/05/2023 text/html 58 yr old male presents for a follow up on chronic conditions.has concerns of pain in joints of feet and knees. pt [place] and wants a check up before he flys out on . pt states he will see a ra when he is in the [facility]. pt states he plans to be there for 6 months Nicole Garcia APRN [address], [place], [address], [place] - [facility] 06/05/2023 12:14:26 11/23/2023 text/html 58 yr old male presents for joint pain, back pain, and stiffness. He recently returned from a 6 month trip to the [facility] and had a [address] ride. pt states while in visiting his family he was put in hospital and received physical therapy. pt states he was doing well until he got off the 18 hour plane ride and now his joints and back are hurting. Marygustavo LOBO whiting [address], [place], [address], [facility] - [facility] 11/23/2023 13:41:51 03/18/2024 text/html 58 year old male who presents to the office today for a follow up onarthritis, htn and goutconcerns of having a lot of pain when moving and walkingpt states fatigue, not sleeping well due to painpt states he is going to do some traveling in nov Nicole Garcia APRN [address], [place], [address], [place] - [facility] 03/18/2024 11:48:11 12/05/2024 text/html 59 yr old male just returned from [facility]. He is here for a check up. He would like an order for PT to help build his muscle/strength. Nicole LOBO whiting [address], [place], [address], [place] - [facility] 12/05/2024 14:05:56 02/02/2025 text/html 59 yr old male presents for right hand swelling, feeling foggy in his head. He did have some pineapple from a can that tasted like metal so he stopped. He then took milk thistle- did have bloody bowel movements x 3 days. Abd pain/cramping,bloa ting. He went off his supplements and diet for about 3-4 days as well. Nicole LOBO whiting [address], [place], [address], [place] - [facility] 02/02/2025 15:21:24
--- OUTSIDE RECORDS SUMMARY | 2025-02-02 16:02 | XMS_ITS | Continuity of Care Document ---
Author Organization [facility], [facility] Address [address] [place] [address] Care Team Providers Care Drum Worker Name Role Phone NICOLE BONNER Primary Care Provider Unavailabl e Assessment No assessment recorded. Plan of Treatment Reminders Order Date Submit Date Provider Last Modified By Organization Details Last Modified Time Details Appointments SAME Day 025 02:40PM Nicole Bonner APRN Not available Not available Not available Lab None record ed. Referral None record ed. Procedures None record ed. Surgeries None record ed. Imaging None record ed. Medication Orders None record ed. Patient TargetsNo targets recorded. Patient Instructions Encounter Date Encounter Id Patient Instructions Last Modified By Organization Details Last Modified Time 12/05/2024 [id number] physical therapy * - pt,ot for joint pain.stiffness KELL Not available 12/19/2024 16:13:10 learning about healthy weight efryman Not available 12/05/2024 14:05:34 body mass index: care instructions efryman Not available 12/05/2024 14:05:34 Reason for Referral None Reported. Problems Name Problem SNOMED Code Status Onset Date Resolution Date Notes Provider Name and Address Organization Details Recorded Time Asthma 697173762 Active Socorro Louis null, [place] - [facility] 2 15:55:48 Gout 54415035 Active Socorro Louis [place], [place] - [facility] 2 15:56:08 Hypertensive disorder 28126146 Active Socorro Louis null, [place] - [facility] 2 15:56:25 Prediabetes 038819689 Active 2021 Nicole Bonner APRN [address], [place], [address] , [facility] - [facility] 2 16:31:00 Osteoarthriti s 968354572 Active 2023 EMIR Heerdia - [facility] 4 10:06:35 Problem Notes None recorded. Procedures Surgical History Date Name Laterality Status Provider Name and Address Organization Details Recorded Time Unlisted procedure nose completed Socorro FIELD - [facility] 02/18/2022 15:50:01 Orthopedic Surgery completed Socorro FIELD - [facility] 02/18/2022 15:50:37 Oral surgery procedure completed Socorro FIELD - [facility] 02/18/2022 15:50:56 Unlisted px meckel's dvrtclm completed Socorro FIELD - [facility] 02/18/2022 15:51:05 Imaging Results None recorded. Procedure Notes None recorded. Medical Equipment None Reported. Allergies Allergen ID Allergen Name Allergen Category Reaction Reaction Severity Criticality Documentation Date Start Date Code Code System Note Provider Name and Address Organization Details Recorded Time 370954 shellfish derived food,medi cation anaphylax is severe high 02/18/2022 15308 UNK EMIR [place] - [facility] 2 15:37:23 Medications Name Sig Start Date Stop [...] Updated DateTime 5 165.1 cm 30.3 kg/m2 53201.8 1 g 101 /min 98 % 98 % 18 /min 148/88 mm[Hg] Socorro Louis [place] - [facility] 5 09:28:44 Social History Question Answer Notes LastModified by Organizat ion Details LastModified Time Tobacco Smoking Status Never Smoker Socorro Louis null, [place] - [facility] 02/18/2022 15:45:39 Do You [...] Or The Highest Degree You Have Received? [id number] Information not available 02/18/2022 Have There Been Any Changes To Your Family Or Social Situation? No Information no t available 02/18/2022 What Is The Fluoride Status Of Your Home? Fluoridated Information not available 02/18/2022 Have You Recently Or Are You Planning To Travel To An Area With Zika Virus? No Information not available 02/18/2022 Do You Have A Medical Power Of Community Educator? No Information not available 02/18/2022 What Was [...] anxious, or unable to sleep at night)? [id number] Information not available 02/18/2022 Do you have [...] rS-Ad26, PF, 0.5 mL 12/06/2020 completed Socorro holcomb, [place] - [facility] 01/12/2023 09:51:31 Past Encounters Encounter ID Performer Location Encounter Start Date Encounter Closed Date Diagnosis/Indication Diagnosis SNOMED-CT Code Diagnosis ICD10 Code Diagnosis Note [id number] Nicole Bonner APRN [address] [address] 12/05/2024 09:06:11 12/05/2024 10:11:02 Osteoarthritis 078974546 M19.90 do not take any other nsids while on mobicdo not take norgesic if taking meloxicam Hypertensive disorder 38 085716 I10 labsmed refill Prediabetes 619854970 R7 3.03 continue diet and monitoring glucoselab s in 3 months Gout 66959528 M10.9 monitor diet Body mass index 30+ - obesity 274762156 E66.9 30.3 Obesity 938673399 E66.9 Health Concerns Section Related Observation LastModified by Organization Detai ls LastModified Time None Recorded Concern Status LastModified by Organization Details LastModified Time None Recorded Payers Encounter Date Sequence Insurance Name Policy Number Policy Ruiz Covered Member ID Ruiz Member ID Guarantor Name 12/05/2024 1 [employer] Dilshad Moya [id number] Dilshad Moya Notes Date Note Type Note Provider Name and Address Organization Details Recorded Time 12/05/2024 text/html 59 yr old male just returned from [facility]. He is here for a check up. He would like an order for PT to help build his muscle/strength . Nicole Bonner, CREDIT UNION MANAGER [address], [place], [address], [place] - [facility] 12/05/2024 14:05:56
[2025-02-02 16:04] VITALS: BP 151/112; PULSE 99; O2SAT 98
--- NOTE | 2025-02-02 16:07 | CT_ITS ---
PROCEDURE INFORMATION: Exam: CT Abdomen And Pelvis With Contrast Exam date and time: 02/02/2025 5:16 PM Age: 59 years old Clinical indication: Abdominal pain; Additional info: Upper abd pain TECHNIQUE: Imaging protocol: Computed tomography of the abdomen and pelvis with contrast. Radiation optimization: All CT scans at this facility use at least one of these dose optimization techniques: automated exposure control; mA and/or kV adjustment per patient size (includes targeted exams where dose is matched to clinical indication); or iterative reconstruction. Contrast material: ISOVUE; Contrast volume: 75 ml; Contrast route: IV; COMPARISON: CR XR CHEST 2V 07/23/2021 11:41 AM FINDINGS: Liver: Normal. No mass. Gallbladder and biliary ducts: Cholelithiasis. No significant gallbladder wall thickening or pericholecystic fat stranding. No ductal dilation. Pancreas: Normal. No ductal dilation. Spleen: Normal. No splenomegaly. Adrenal glands: Normal. No mass. Kidneys and ureters: Normal. No hydronephrosis. Stomach and bowel: Incomplete distension of the stomach with apparent wall thickening. Several nondistended fluid-filled loops of small bowel. No obstruction. No mucosal thickening. Appendix: No evidence of appendicitis. Intraperitoneal space: Unremarkable. No free air. No significant fluid collection. Vasculature: Unremarkable. No abdominal aortic aneurysm. Lymph nodes: Unremarkable. No enlarged lymph nodes. Urinary bladder: Unremarkable as visualized. Reproductive: Prostatomegaly. Bones/joints: Degenerative changes. No acute fracture. Grade 1 anterolisthesis L5 on S1, on the basis of bilateral L5 pars defects. Soft tissues: Unremarkable. IMPRESSION: 1. Apparent gastric wall thickening, which may be related to incomplete distension, although gastritis can not be excluded. 2. Several nondistended fluid-filled loops small bowel, a nonspecific finding, although can be seen with enteritis. 3. Cholelithiasis.
--- NOTE | 2025-02-02 16:29 | ED_ITS ---
<Statement entered by Flora Leahy DO - 02/02/25 18:46> I was consulted by the ELV[facility], and we discussed the complexity of the problems being addressed. I approved the treatment and management plan for this patient's care in the emergency department, thus performing a substantive portion of the medical decision making. Flora Leahy DO Discharge Plan Disposition Patient Disposition: Home, Self-Care Prescriptions Prescriptions: New famotidine [Pepcid] 20 mg tablet 20 mg PO DAILY Qty: 10 0RF No Action lisinopril 10 mg tablet 10 mg PO BID Qty: 60 2RF colchicine 0.6 mg tablet 0.6 mg PO TID PRN (Reason: gout) Qty: 120 0RF Rx Instructions: Take TID PRN as tolerated until gout resolves, then daily prednisone 20 mg tablet 20 mg PO BID Qty: 10 0RF Rx Instructions: administer with food or milk allopurinol 300 mg tablet 300 mg PO DAILY Qty: 90 0RF albuterol sulfate 2.5 mg /3 mL (0.083 %) solution for nebulization 2.5 mg INHALATION Q4-6H PRN (Reason: asthma) Qty: 15 0RF Trelegy Ellipta 100-62.5-25 mcg blister with device 1 inh INHALATION DAILY Qty: 28 2RF ergocalciferol (vitamin D2) 1,250 MCG capsule 50,000 unit PO QWEEK Referrals Follow up/Referrals: Zackary Barreto MD [Staff Physician, General Surgery] - See instructions Marcell Bonner APRN [Primary Care Provider, Medical] - See instructions Activity Restrictions/Add. Instructions Additional Instructions/Restrictions: Today you were evaluated in the emergency department for abdominal pain and rectal bleeding. You have 3 external hemorrhoids. Please use warm sitz bath's and try to wipe with wet wipes to reduce bleeding. Your CT scan shows that you have gastritis, please take the medication that I have prescribed to help with the symptoms. Your CT scan also shows that you have cholelithiasis, which is stones in your gallbladder. Although I do not feel that this is causing your issues today, please follow-up with general surgery as outpatient for further management of this. Increase your fluid intake. Return to the ED for any worsening of your condition. Clinical Impressions Clinical Impression: Hemorrhoids Gastritis Qualifiers: Gastritis type: unspecified gastritis Chronicity: acute Gastritis bleeding: p resence of bleeding unspecified Qualified Code(s): K29.00 - Acute gastritis without bleeding Cholelithiasis Qualifiers: Cholelithiasis location: gallbladder Cholecystitis presence: without cholecystitis Instructions Patient Instructions: Gastritis, DI for Gallstones Print Language Print Language: German Discharge ED Provider: Flora Leahy General Adult HPI General Chief complaint: Abdominal Pain Stated complaint: ? bleeding in stomach Time Seen by Provider: 02/02/25 15:58 Mode of Arrival: Ambulatory Source of Information: Patient Description of Symptoms (Recalled from ER Triage Doc. by RN): patient states he was sent by pcp he reports 2 days ago he began having abdominal cramps and bright red blood in his stool. he reports he is still cramping but has not seen anymore blood in his stool he also reports brain fog for a while unable to concentrate History of Present Illness HPI narrative: patient is a 59-year-old male PMHx history of dengue fever, HTN, gout who presents to the ED for complaints of 1 episode of blood during bowel movement that occurred yesterday, intermittent upper abdominal pain and brain fog. Patient states that brain fog started 3 days ago. He denies any recent trauma, falls or MVC. He was sent here from his PCP to be evaluated for these complaints, he was at PCP office earlier today and received an injection for his gout but he is unsure what. Related Data Home Medications ?Medication ?Instructions ?Recorded ?Confirmed ergocalciferol (vitamin D2) 1,250 50,000 unit PO QWEEK supu 05/29/21 12/17/21 mcg (50,000 unit) capsule Previous Rx's ?Medication ?Instructions ?Recorded lisinopril 10 mg tablet 10 mg PO BID #60 tabs albuterol sulfate 2.5 mg/3 mL 2.5 mg (3 mL) inhalation Q4-6H PRN 10/04/21 (0.083 %) solution for nebulization asthma #15 mL fluticasone fur. 100 mcg-umeclid 1 inh inhalation TANNER Y #28 ea 10/04/21 62.5 mcg-vilant 25 mcg inhalat.powder (Trelegy Ellipta) allopurinol 300 mg tablet 300 mg PO DAILY prevention o f gout 12/17/21 #90 tabs colchicine 0.6 mg tablet 0.6 mg PO TID PRN gout #120 tabs 12/17/21 prednisone 20 mg tablet 20 mg PO BID #10 tabs famotidine 20 mg tablet (Pepcid) 20 mg PO DAILY #10 ta bs 02/02/25 Allergies Allergy/AdvReac Type Severity Reaction Status Date / Time shellfish derived Allergy Anaphylaxis Verified 12/17/21 09:55 shrimp Allergy Anaphylaxis Verified 12/17/21 09:55 [facility] Disclaimer: The information contained in this section may have been updated after the patient was seen, as this information can be updated by other users. Medical History (Updated 02/02/25 @ 18:33 by Teresa Curran APRN) History of hepatitis A Gout Social History Smoking Status: Never smoker alcohol intake: never substance use type: denies use current occupational status: employed Travel in the last 8 weeks?: None household members: spouse housing: house Have you lived/traveled outside [place] in past 30 days?: No Contact w/someone who lives/traveled outside [place] past 30 days?: No Exposure to someone with infectious disease in past 14 days?: No Do you have a fever (greater than 100.4 F or 38 C)?: No Have you tested positive for COVID-19?: No Exposed to someone with COVID-19 in past 14 days?: No Do you have a sore throat?: No Do you have a cough?: No Do you have any weakness?: No Do you have any diarrhea?: No Are you experiencing any unusual bleeding?: Yes Do you have any muscle aches/pain?: No Do you have any abdominal pain?: No Are you experiencing loss of taste or smell?: No Other Medical History Have you received the Flu Vaccine for this season: No Have you received the Pneumonia Vaccine: No ROS Obtained: Yes Systems reviewed as appropriate & no additional complaints except as documented Physical Exam General General appearance: alert and in no apparent distress Head Head exam: atraumatic Eye Eye exam: Present normal appearance ENT ENT exam: Present normal exam Neck Neck exam: Present normal inspection Chest Chest inspection: Present normal inspection Respiratory Respiratory exam: Present normal lung sounds bilaterally Cardiovascular Cardiovascular exam: Present regular rate Abdominal Exam Abdominal exam: Present soft; Absent distention, tenderness or guarding exam: Present other (3 external hemorrhoids noted ) Extremities Exam Extremities exam: Present full ROM Back Exam Back exam: Present full ROM Neurological Exam Neurological exam: Present alert and oriented X3 Skin Skin exam: Present warm and dry Medical Decision Making Medical Records Screening: Per USPSTF and CDC recommendations, given the prevalence of disease in our region, it is our hospital?s policy to screen for HIV and viral Hepatitis for all patients aged 18 and over and those with ongoing risk factors. Andrzej Inquiry Pt receiving controlled substance: No Vital Signs: 02/02/25 16:02 02/02/25 16:04 02/02/25 17:45 Temperature 98.6 F Temperature Source Oral Pulse Rate 99 H 93 H Pulse Rate [Right Radial] 89 Respiratory Rate 17 19 Blood Pressure 151/112 H 142/97 H Blood Pressure [Right Arm] 151/112 H Blood Pressure Mean 112 Blood Pressure Mean [Right Arm] 125 Blood Pressure Source [Right Arm] Automatic Cuff Blood Pressure Position [Right Arm] Sitting 02 Sat by Pulse Oximetry 98 98 97 Oxygen Delivery Method Room Air Room Air 02/02/25 18:00 Temperature Temperature Source Pulse Rate Pulse Rate [Right Radial] Respiratory Rate Blood Pressure 136/94 H Blood Pressure [Right Arm] Blood Pressure Mean 109 Blood Pressure Mean [Right Arm] Blood Pressure Source [Right Arm] Blood Pressure Position [Right Arm] 02 Sat by Pulse Oximetry Oxygen Delivery Method Lab Data Lab Results 02/02/25 16:29: WBC 9.3, RBC 4.96, Hgb 14.9, Hct 44.4, MCV 89.5, MCH 30.0, MCHC 33.6, RDW 14.2, Plt Count 213, MPV 10.5 H, Neut % (Auto) 80.5 H, Lymph % (Auto) 13.0, [place] % (Auto) 5.5, Eos % (Auto) 0.3, Baso % (Auto) 0.3, Neut # (Auto) 7.5, Lymph # (Auto) 1.2, [place] # (Auto) 0.5, Eos # (Auto) 0.0, Baso # (Auto) 0.0, Sodium 137, Potassium 4.1, Chloride 101, Carbon Dioxide 25, Anion Gap 15.1 H, BUN 9, Creatinine 0.80, Estimated Creat Clear 115, Estimated GFR 100, Est GFR ( Amer) 121, Glucose 111 H, Calcium 9.0, Total Bilirubin 0.7, AST 28, ALT 24, Alkaline Phosphatase 78, Total Protein 8.5 H, Albumin 4.8, Globulin 3.7 H, Albumin/Globulin Ratio 1.3, Lipase 98, TSH 2.17, Free T4 1.19, HCV Ab PARK w/Rflx PCR Qn Negative, HIV Ag/Ab Combo Qual Negative 02/02/25 16:29 02/02/25 16:29 Orders (Tests/Meds): ED MEDICATIONS Generic Name Dose Route Start Last Admin Trade Name Freq PRN Reason Stop Dose Admin Belladonna Alkaloids 60 ml 02/02/25 18:34 Belladonna Alkaloids 60 Ml Ml PO 02/02/25 18:35 ONCE ONE Discontinued Medications Generic Name Dose Route Start Last Admin Trade Name Freq PRN Reason Stop Dose Admin Iopamidol 75 ml 02/02/25 17:16 02/02/25 17:17 Iopamidol-370 (76%);100ml Bottle IV 02/02/25 17:17 75 ml ONCE ONE Administration Sodium Chloride 10 ml 02/02/25 17:16 02/02/25 17:17 Sodium Chloride 0.9% 10ml Syr (Rad Only) IV 02/02/25 17:17 10 ml ONCE ONE Administration ORDERS Category Date Time Status CT abdomen pelvis w con Stat Cat Scan 02/02/25 16:07 Completed CBC w/Auto Diff [Complete Blood Count Auto Diff] Stat Lab 02/02/25 16:29 Completed CMP [Comprehensive Metabolic Panel] Stat Lab 02/02/25 16:29 Completed Free T4 (Free Thyroxine) Stat Lab 02/02/25 16:29 Completed HIV Combo Stat Lab 02/02/25 16:29 Completed Hepatitis C Ab Qual. W/ RFX Stat Lab 02/02/25 16:29 Completed Lipase Stat Lab 02/02/25 16:29 Completed TSH [Thyroid Stimulating Hormone] Stat Lab 02/02/25 16:29 Completed Medical Decision Narrative: In summary, patient is a 59-year-old male PMHx history of dengue fever, HTN, gout who presents to the ED for complaints of 1 episode of blood during bowel movement that occurred yesterday, intermittent upper abdominal pain and brain fog. Patient states that brain fog started 3 days ago. He denies any recent trauma, falls or MVC. He was sent here from his PCP to be evaluated for these complaints, he was at PCP office earlier today and received an injection for his gout but he is unsure what. Denies fever, chills, body aches, headache, chest pain, shortness of breath, back pain, dysuria, nausea, vomiting. Upon initial evaluation patient is alert, oriented and cooperative. He is hemodynamically stable. His physical exam is unremarkable for any abdominal tenderness. Patient states he is having gout pain in his finger and left arm currently. With RN in the room, I did a rectal exam and noted that patient had 3 external hemorrhoids, no bleeding noted. No dried blood noted around rectal area. I discussed with patient that we will proceed with labs and CT imaging. He is agreeable to plan of care at this time. CBC unremarkable for any leukocytosis, stable H&H. CMP unremarkable for any actionable abnormalities. Lipase 98. Patient was symptomatically managed with GI cocktail. CT scan remarkable for cholelithiasis and gastritis. The patient is aware that he has a cholelithiasis for quite some time now. He has already been evaluated for this in the past and has elected to attempt to treat with diet instead of surgical removal. I discussed with patient the implications of gastritis and food and drinks to avoid. We discussed taking the Pepcid as directed once in the morning and wait 45 minutes before eating or drinking. We discussed optional follow-up with surgery to remove gallbladder if he decides. Otherwise, follow-up with PCP. Advised him to use wet wipes on his hemorrhoids and increase fluid intake to soften stools. We discussed return precautions to the ED. Critical Care Critical Care Time Critical Care Time: No
[2025-02-02 16:39] LABS: Hematocrit 44.4 % (42.0-52.0); Hemoglobin 14.9 g/dL (14.1-18.0); Immature Granulocytes % 0.4 %; Mean Corpuscular HGB Conc 33.6 g/dL (31.8-35.4); Mean Corpuscular Hemoglobin 30.0 pg (27.0-31.2); Mean Corpuscular Volume 89.5 fl (80-94); Nucleated Red Blood Cells % 0 %; Platelet Count 213 K/mm3 (142-424); Red Blood Count 4.96 M/mm3 (4.60-6.20); Red Cell Distribution Width-SD 46.5 fL; White Blood Count 9.3 K/mm3 (4.8-10.8)
[2025-02-02 16:49] LABS: Albumin Level 4.8 g/dl (3.5-5.0); Chloride 101 mmol/L (98-107); Potassium 4.1 mmoL/L (3.5-5.1); Sodium 137 mmol/L (136-145)
[2025-02-02 16:52] LABS: Alanine Aminotransferase 24 U/L (12-78); Albumin/Globulin Ratio 1.3 (1.1-1.8); Alkaline Phosphatase 78 U/L (38-126); Anion Gap 15.1 mEq/L (5-15); Aspartate Amino Transferase 28 U/L (17-59); Bilirubin,Total 0.7 mg/dl (0.2-1.3); Blood Urea Nitrogen 9 mg/dl (9-20); Carbon Dioxide 25 mmol/L (22.0-30.0); Creatinine Clearance Estimated 115 mL/min (50-200); Creatinine,Serum 0.80 mg/dl (0.66-1.25); Estimated Glomerular Filt Rate 100 ml/min (>60); GFR (African American) 121 ML/MIN (>60); Globulin 3.7 g/dL (1.3-3.2); Lipase 98 U/L (23-300); Total Protein,Serum 8.5 g/dl (6.3-8.2)
[2025-02-02 16:53] LABS: Calcium 9.0 mg/dl (8.4-10.2); Glucose 111 mg/dl (74-100)
[2025-02-02] MEDS: SODIUM CHLORIDE 0.9% 10ML SYR (RAD ONLY) 10 ML IV (17:17)
[2025-02-02] MEDS: IOPAMIDOL-370 (76%);100ML BOTTLE 75 ML IV (17:17)
--- NOTE | 2025-02-02 17:20 | PC.NURSE ---
PT RETURNED FROM CT
[2025-02-02 17:25] LABS: Thyroid Stimulating Hormone 2.17 uIU/mL (0.465-4.68)
[2025-02-02 17:26] LABS: Free T4 (Free Thyroxine) 1.19 ng/dl (0.78-2.19)
[2025-02-02 17:45] VITALS: BP 142/97; PULSE 93; RESP 19; O2SAT 97
[2025-02-02 17:59] LABS: Hepatitis C Ab Qual. W/ RFX NEGATIVE (Negative)
[2025-02-02 18:00] VITALS: BP 136/94
[2025-02-02 18:36] VITALS: BP 146/93; PULSE 79; RESP 19; TEMP 37.1; O2SAT 98
[2025-02-02] MEDS: BELLADONNA ALKALOIDS 60 ML ML PO (18:39)
== END 2025-02-02 18:45 | disposition home or self-care (01) ==
PROVIDERS: Nurse Practitioner; Emergency Provider Emergency Medicine; PCP Nurse Practitioner Family
DX: R10.10 Upper abdominal pain, unspecified (principal); K29.00 Acute gastritis without bleeding; K64.9 Unspecified hemorrhoids; K80.20 Calculus of gallbladder without cholecystitis without obstruction; R41.0 Disorientation, unspecified
CPT/HCPCS: 74177; 80053; 83690; 84439; 84443; 85025; 86803; 87389; 99284; Q9967